=== PATIENT | female | born 1955 | race American Indian/Alaskan Native ===

== ENCOUNTER 2017-11-05 15:41 | Observation (INO) | payer MEDICARE ==
[2017-11-05 18:48] LABS: Basophils % (Auto) 0.4 % (0.0-1.8); Eosinophils % (Auto) 0.3 % (0.0-4.3); Hematocrit 42.5 % (30.3-42.9); Hemoglobin 13.7 gm/dl (10.1-14.3); Lymphocytes # (Auto) 3.6 K/mm3 (1.2-5.4); Lymphocytes % (Auto) 41.2 % (13.4-35.0); Mean Corpuscular HGB Conc 32 % (30-34); Mean Corpuscular Hemoglobin 29 pg (28-32); Mean Corpuscular Volume 91 fl (79-97); Monocytes # (Auto) 0.6 K/mm3 (0.0-0.8); Platelet Count 376 K/mm3 (140-440); Red Blood Count 4.68 M/mm3 (3.65-5.03); Red Cell Distribution Width 14.8 % (13.2-15.2)
--- NOTE | 2017-11-05 18:48 | XRay Report ---
FINAL REPORT EXAM: XR CHEST ROUTINE 2V HISTORY: Shortness of breath TECHNIQUE: 2 view examination of the chest PRIORS: None FINDINGS: There is no visible pulmonary consolidation, pleural effusion, or pneumothorax. Cardiac silhouette size is normal without vascular congestion. No visible acute displaced fracture in the regional skeleton. IMPRESSION: No evidence of acute cardiopulmonary disease
--- NOTE | 2017-11-05 18:49 | Emergency Department Report ---
Blank Doc - Documentation Documentation: MSE sceening note: Pt has cc of nausea. HPI pt states she has had some sob, " cant take a deep breath" for a few days. upon questioning pt points to sub - xyphoid/epigastric area and may have some chest pain pt has hx of htn, is a 30 year ex smoker, who states she quit 10 years ago. pt is alert, normal speech and gait without neglect,' s1 s2 nrr lungs clear bl no obvious abd tenderness. no swelling to lower extrem plan- ekg= nsr at 73, no stemi, read at 15:48 in main ED pt does have qs in v1 v2 , may represent an old ant / septal [place], may be pt s baseline. plan- acs work up 23 hr obs for cp I am going off service. I will ask night team to write note, and arrange 23 hr obs for "r/o and stress test"
[2017-11-05] MEDS ORDERED: ECOTRIN PO ONE ×2 (18:54→23:34)
[2017-11-05] MEDS ORDERED: ZOFRAN ODT PO ONE (18:55)
[2017-11-05] MEDS ORDERED: NITRO-BID 2% TP ONE (18:55)
[2017-11-05 19:15] LABS: BUN/Creatinine Ratio 21; Blood Urea Nitrogen 15 mg/dL (7-17); Calcium 9.8 mg/dL (8.4-10.2); Hemolysis Index 11
[2017-11-05 19:53] LABS: Creatine Kinase MB 2.5 ng/mL (0.0-4.0)
[2017-11-05 19:56] LABS: Alanine Aminotransferase 14 units/L (7-56); Albumin 4.7 g/dL (3.9-5); BUN/Creatinine Ratio 21; Blood Urea Nitrogen 15 mg/dL (7-17); Calcium 9.8 mg/dL (8.4-10.2); Hemolysis Index 8; Lipase 31 units/L (13-60)
--- NOTE | 2017-11-05 21:40 | Emergency Department Report ---
ED General Adult HPI - General Chief complaint: Dyspnea/Respdistress Stated complaint: SHORTNESS OF BREATH Time Seen by Provider: 11/05/17 18:23 Source: patient Mode of arrival: Ambulatory Limitations: No Limitations - History of Present Illness Initial comments: MSE sceening note: Pt has cc of nausea. HPI pt states she has had some sob, " cant take a deep breath" for a few days. upon questioning pt points to sub - xyphoid/epigastric area and may have some chest pain pt has hx of htn, is a 30 year ex smoker, who states she quit 10 years ago. pt is alert, normal speech and gait without neglect,' s1 s2 nrr lungs clear bl no obvious abd tenderness. no swelling to lower extrem plan- ekg= nsr at 73, no stemi, read at 15:48 in main ED pt does have qs in v1 v2 , may represent an old ant / septal [place], may be pt s baseline. plan- acs work up 23 hr obs for cp -: days(s) (3), week(s) Location: chest Quality: aching Consistency: intermittent Improves with: none Worsens with: none Associated Symptoms: nausea/vomiting - Related Data Allergies Allergy/AdvReac Type Severity Reaction Status Date / Time morphine Allergy Unknown Verified 11/05/17 16:02 ED Review of Systems ROS: Stated complaint: SHORTNESS OF BREATH Other details as noted in HPI ED Past Medical Hx - Past Medical History Previous Medical History?: Yes Hx Hypertension: Yes - Surgical History Past Surgical History?: Yes Additional Surgical History: tubal ligation - Social History Smoking Status: Former Smoker Substance Use Type: Alcohol, Marijuana ED Physical Exam - General Limitations: No Limitations ED Course Vital Signs 11/05/17 11/05/17 11/05/17 16:04 23:37 23:38 Temperature 98.5 F 97.6 F Pulse Rate 75 66 66 Respiratory 16 16 Rate Blood Pressure 132/74 120/79 Blood Pressure 120/79 [Right] O2 Sat by Pulse 97 99 Oximetry ED Medical Decision Making - Lab Data Result diagrams: 11/05/17 18:11 11/05/17 19:12 Critical care attestation.: If time is entered above; I have spent that time in minutes in the direct care of this critically ill patient, excluding procedure time. ED Disposition Clinical Impression: Abnormal finding on EKG, Chest pain Disposition: OP ADMIT IP TO THIS HOSP Is pt being admited?: Yes Does the pt Need Aspirin: Yes Condition: Stable
[2017-11-05 21:51] LABS: Bilirubin,Urine NEG (Negative); Blood,Urine SM (Negative); Color,Urine Straw (Yellow); Mucus,Urine FEW /HPF; Protein,Urine <15 mg/dL mg/dL (Negative); Urobilinogen,Urine < 2.0 mg/dL (<2.0)
[2017-11-05] MEDS ORDERED: ZOFRAN ODT ONE (23:33)
[2017-11-05] MEDS ORDERED: TYLENOL PO PRN (23:42)
[2017-11-05] MEDS ORDERED: ZOFRAN IV PRN (23:43)
[2017-11-05] MEDS ORDERED: NITROSTAT SL PRN (23:44)
[2017-11-05] MEDS ORDERED: NITRO-BID 2% TP SCH (23:45)
--- NOTE | 2017-11-06 05:19 | History and Physical Report ---
CHIEF COMPLAINT: Shortness of breath. Other complaints include chest pain. HISTORY OF PRESENT ILLNESS: The patient is a 62-year-old female who said that she has been having difficulty in breathing going on for few days and then started feeling nauseated with some discomfort in the retrosternal and epigastric area. There is no history of diaphoresis, no history of fever or chills. No history of vomiting. The patient's chest discomfort does not radiate. There is no associated dizziness. The patient presented to the Emergency Room. PAST MEDICAL HISTORY: Pertinent for hypertension. PAST SURGICAL HISTORY: Pertinent for tubal ligation. FAMILY HISTORY: Noncontributory. SOCIAL HISTORY: The patient is a former cigarette smoker, but does not smoke currently, but drinks alcohol and uses marijuana. REVIEW OF SYSTEMS: CONSTITUTIONAL: There is no fever, no chills, no diaphoresis. HEENT: There is no headache or sore throat. CARDIOVASCULAR SYSTEM: There is chest pain but no orthopnea. RESPIRATORY: Shortness of breath is present. No cough. GASTROINTESTINAL SYSTEM: There is nausea but no vomiting. There is epigastric abdominal pain. There is no diarrhea or constipation. NEUROLOGIC SYSTEM: There is no numbness, no dizziness, no altered mental status. MUSCULOSKELETAL SYSTEM: There is no joint pain or swelling. DERMATOLOGICAL SYSTEM: There is no skin rash or itching. GENITOURINARY SYSTEM: There is no dysuria, hematuria or flank pain. Rest of system review is normal. PHYSICAL EXAMINATION: GENERAL: At the time of exam, the patient was found to be alert, oriented x 3 and not in acute distress. VITAL SIGNS: Shows temperature of 98.5 degrees Fahrenheit, pulse of 75, respiration of 16, blood pressure 132/74, O2 sat of 97% on room air. HEENT: Show pupils to be equal, round, and reactive to light and accommodation. Extraocular muscles are intact. NECK: Supple with no JVD or carotid bruit. CARDIOVASCULAR: Showed normal first and second heart sounds with no gallops or murmurs. RESPIRATORY: Show good air entry on both sides of the lungs with no abnormal breath sounds. GASTROINTESTINAL SYSTEM: Show abdomen to be full, soft, nontender with no organomegaly or rigidity. NEUROLOGICAL: Shows no focal deficit. MUSCULOSKELETAL: Show no joint swelling or tenderness. DERMATOLOGICAL: Showing no skin rash. GENITOURINARY: Showing no costovertebral angle tenderness. PERTINENT LABORATORY DATA AND IMAGING STUDIES: The patient has CBC done that shows normal white count, normal hemoglobin and normal hematocrit with CBC differential showing elevated lymphocyte count of 41.2. The patient's chemistry came back are unremarkable. Cardiac enzymes came back unremarkable. Urinalysis was unremarkable. IMAGING STUDIES: The patient had chest x-ray done that showed no evidence of acute cardiopulmonary disease. DIAGNOSIS: Chest pain. PLAN: The patient will be admitted to medical floor on telemetry and will have cardiac enzymes involving troponin, total CK, and CK-MB checked q. 6 hours x 2 more level. The patient will remain n.p.o. for Lexiscan nuclear stress test in the morning and will be on Tylenol 650 mg by mouth every 4 hours for fever, headache and aspirin 325 mg by mouth daily. The patient will also be on heparin 5000 units subq q. 12 hours, p.o. sublingual nitroglycerin 0.4 mg every 5 minutes as needed for chest pain and also be on nitro paste half-inch to anterior chest wall q.i.d. The patient will be on IV Zofran 4 mg every 8 hours as needed for pain and will be on oxygen by cannula 2 liters per minute. Further management of the patient's condition will be dependent on the result of stress test. JOB# [id number] OCN/NTS
[2017-11-06 06:17] VITALS: BP 124/72
[2017-11-06] MEDS ORDERED: LEXISCAN IV ONE ×2 (08:12→08:19)
[2017-11-06] MEDS ORDERED: ASPIRIN PO SCH (10:00)
[2017-11-06] MEDS ORDERED: HEPARIN SUB-Q SCH (10:00)
--- NOTE | 2017-11-06 11:40 | Progress Note ---
Assessment and Plan Assessment and plan: Patient is a 62 yo woman with a history of prior tob dependency and hypertension who presents with cp -CP, atypical, suspect related to GERD: i advised her to use Nexium otc, she voiced understanding and agreement. -Hypertension: cpm History Interval history: Patient was seen and examined. Follow-up on current diagnosis. Overnight uneventful. Patient denies any chest pain, shortness breath, nausea/vomiting or severe headaches. Imaging, nursing note, chart, labs and old chart reviewed. Discussed with patient. No more chest pains, but she gives a history of dyspepsia not relieved by her typical Rantidine 150mg. Hospitalist Physical - Physical exam Narrative exam: GEN: WDWN, NAD, Awake, Alert, Orientated x 3 HEENT: NCAT, EOMI, PERRL, OP Clear NECK: supple, no adenopathy, no thyromegaly, no JVD CVS/HEART: RRR, occasional reg melany, normal S1S2, pulses present bilaterally CHEST/LUNGS: CTA B, Symmetrical chest expansion, good air entry bilaterally GI/Abdomen: soft, NTND, good bowel sounds, no guarding or rebound /Bladder: no suprapubic tenderness, no CVA or paraspinal tenderness EXT/Skin: no c/c/e, no obvious rash MSK: FROM x 4 Neuro: CN 2-12 grossly intact, no new focal deficits Psych: calm - Constitutional Vitals: Temp Pulse Resp BP Pulse Ox 98.3 F 56 L 18 124/72 100 11/06/17 04:45 11/06/17 06:41 11/06/17 04:45 11/06/17 04:45 11/06/17 08:07 Results - Labs CBC & Chem 7: 11/05/17 18:11 11/05/17 19:12 Labs: Laboratory Last Values WBC 8.8 K/mm3 (4.5-11.0) 11/05/17 18:11 RBC 4.68 M/mm3 (3.65-5.03) 11/05/17 18:11 Hgb 13.7 gm/dl (10.1-14.3) 11/05/17 18:11 Hct 42.5 % (30.3-42.9) 11/05/17 18:11 MCV 91 fl (79-97) 11/05/17 18:11 MCH 29 pg (28-32) 11/05/17 18:11 MCHC 32 % (30-34) 11/05/17 18:11 RDW 14.8 % (13.2-15.2) 11/05/17 18:11 Plt Count 376 K/mm3 (140-440) 11/05/17 18:11 Lymph % (Auto) 41.2 % (13.4-35.0) H 11/05/17 18:11 Storey % (Auto) 7.0 % (0.0-7.3) 11/05/17 18:11 Eos % (Auto) 0.3 % (0.0-4.3) 11/05/17 18:11 Baso % (Auto) 0.4 % (0.0-1.8) 11/05/17 18:11 Lymph # 3.6 K/mm3 (1.2-5.4) 11/05/17 18:11 Storey # 0.6 K/mm3 (0.0-0.8) 11/05/17 18:11 Eos # 0.0 K/mm3 (0.0-0.4) 11/05/17 18:11 Baso # 0.0 K/mm3 (0.0-0.1) 11/05/17 18:11 Seg Neutrophils % 51.1 % (40.0-70.0) 11/05/17 18:11 Seg Neutrophils # 4.5 K/mm3 (1.8-7.7) 11/05/17 18:11 D-Dimer < 135.00 ng/mlDDU (0-234) 11/05/17 19:12 Sodium 140 mmol/L (137-145) 11/05/17 19:12 Potassium 3.6 mmol/L (3.6-5.0) 11/05/17 19:12 Chloride 99.9 mmol/L (98-107) 11/05/17 19:12 Carbon Dioxide 24 mmol/L (22-30) 11/05/17 19:12 Anion Gap 20 mmol/L 11/05/17 19:12 BUN 15 mg/dL (7-17) 11/05/17 19:12 Creatinine 0.7 mg/dL (0.7-1.2) 11/05/17 19:12 Estimated GFR > 60 ml/min 11/05/17 19:12 BUN/Creatinine Ratio 21 % 11/05/17 19:12 Glucose 106 mg/dL (65-100) H 11/05/17 19:12 Calcium 9.8 mg/dL (8.4-10.2) 11/05/17 19:12 Total Bilirubin 0.30 mg/dL (0.1-1.2) 11/05/17 19:12 AST 21 units/L (5-40) 11/05/17 19:12 ALT 14 units/L (7-56) 11/05/17 19:12 Alkaline Phosphatase 71 units/L (35-129) 11/05/17 19:12 Total Creatine Kinase 111 units/L (30-135) 11/05/17 19:12 CK-MB (CK-2) 2.5 ng/mL (0.0-4.0) 11/05/17 19:12 CK-MB (CK-2) Rel Index 2.2 (0-4) 11/05/17 19:12 Troponin T < 0.010 ng/mL (0.00-0.029) 11/06/17 07:25 NT-Pro-B Natriuret Pep 33.67 pg/mL (0-900) 11/05/17 19:12 Total Protein 7.6 g/dL (6.3-8.2) 11/05/17 19:12 Albumin 4.7 g/dL (3.9-5) 11/05/17 19:12 Albumin/Globulin Ratio 1.6 % 11/05/17 19:12 Lipase 31 units/L (13-60) 11/05/17 19:12 Urine Color Straw (Yellow) 11/05/17 Unknown Urine Turbidity Clear (Clear) 11/05/17 Unknown Urine pH 5.0 (5.0-7.0) 11/05/17 Unknown Ur Specific Holcomb 1.011 (1.003-1.030) 11/05/17 Unknown Urine Protein <15 mg/dl mg/dL (Negative) 11/05/17 Unknown Urine Glucose (UA) Neg mg/dL (Negative) 11/05/17 Unknown Urine Ketones Neg mg/dL (Negative) 11/05/17 Unknown Urine Blood Sm (Negative) 11/05/17 Unknown Urine Nitrite Neg (Negative) 11/05/17 Unknown Urine Bilirubin Neg (Negative) 11/05/17 Unknown Urine Urobilinogen < 2.0 mg/dL (<2.0) 11/05/17 Unknown Ur Leukocyte Esterase Tr (Negative) 11/05/17 Unknown Urine WBC (Auto) 2.0 /HPF (0.0-6.0) 11/05/17 Unknown Urine RBC (Auto) 2.0 /HPF (0.0-6.0) 11/05/17 Unknown U Epithel Cells (Auto) < 1.0 /HPF (0-13.0) 11/05/17 Unknown Urine Mucus Few /HPF 11/05/17 Unknown
--- NOTE | 2017-11-06 11:42 | Discharge Summary ---
Providers - Providers Date of Admission: 11/05/17 23:33 Date of discharge: 11/06/17 Attending physician: MARKOS COLLINS Primary care physician: NET UI DEVELOPER Hospitalization Condition: Stable Hospital course: Patient is a 62 yo woman with a history of prior tob dependency and hypertension who presents with cp -CP, atypical, suspect related to GERD: i advised her to use Nexium otc, she voiced understanding and agreement. -Hypertension: cpm -GERD CXR reported as no acute findings Will d/c if stress test is negative Disposition: DC-01 TO HOME OR SELFCARE Time spent for discharge: 31 min Core Measure Documentation - Palliative Care Palliative Care/ Comfort Measures: Not Applicable - Core Measures Any of the following diagnoses?: none - VTE Discharge Requirements Deep Vein Thrombosis/Pulmonary Embolism Present on Admission: No Has pt received <5 days of overlap therapy or INR<2.0: No Anticoagulant overlap therapy prescribed at discharge: No Contraindication No Overlap Therapy order at DC: Not Indicated Exam - Physical Exam Narrative exam: GEN: WDWN, NAD, Awake, Alert, Orientated x 3 HEENT: NCAT, EOMI, PERRL, OP Clear NECK: supple, no adenopathy, no thyromegaly, no JVD CVS/HEART: RRR, occasional reg melany, normal S1S2, pulses present bilaterally CHEST/LUNGS: CTA B, Symmetrical chest expansion, good air entry bilaterally GI/Abdomen: soft, NTND, good bowel sounds, no guarding or rebound /Bladder: no suprapubic tenderness, no CVA or paraspinal tenderness EXT/Skin: no c/c/e, no obvious rash MSK: FROM x 4 Neuro: CN 2-12 grossly intact, no new focal deficits Psych: calm - Constitutional Vitals: Temp Pulse Resp BP Pulse Ox 98.3 F 56 L 18 124/72 100 11/06/17 04:45 11/06/17 06:41 11/06/17 04:45 11/06/17 04:45 11/06/17 08:07 Plan Activity: other (no strenous activity until cleared by PCP) Diet: low salt Follow up with: PRIMARY CARE, [Primary Care Provider] - 3-5 Days Prescriptions: Esomeprazole Magnesium [NexIUM 24Hr] 20 mg PO DAILY #30 capsule.
--- NOTE | 2017-11-08 23:02 | Treadmill Report ---
THALLIUM STRESS TEST LEFT VENTRICLE: Left ventricular chamber size is within normal. Perfusion study demonstrates homogeneous uptake of the tracer in all segments, no significant perfusion defects identified. Gated analysis demonstrates normal left ventricular systolic function, ejection fraction 70%. CONCLUSION: Normal myocardial perfusion study. JOB# [id number] CA/NTS
== END 2017-11-06 14:52 | disposition home or self-care (01) ==
LOC: ED 15:41 → INTOOBSV 23:33 → 4A 23:33
PROVIDERS: ADMIT Internal Medicine; ATTEND Internal Medicine
DX: R07.89 Other chest pain (principal); I10 Essential (primary) hypertension; K21.9 Gastro-esophageal reflux disease without esophagitis; Z87.891 Personal history of nicotine dependence
CPT/HCPCS: 36415; 71046; 78452; 80048; 80053; 81001; 82550; 82553; 83690; 83880; 84484; 85025; 85379; 93005; 93010; 93017; 94760; 96372; 99285; A9502; G0378; J1644; J2785; Q0162

== ENCOUNTER 2018-02-27 22:42 | Emergency (ER) | payer MEDICARE ==
[2018-02-27] MEDS ORDERED: ASPIRIN PO ONE (22:57)
[2018-02-27] MEDS ORDERED: LIDOCAINE VISCOUS 2% ONE (23:03)
[2018-02-27] MEDS ORDERED: ALUM-MAG HYDROX-SIMETH 200-200-20MG/5ML ONE (23:04)
[2018-02-27] MEDS ORDERED: LIDOCAINE VISCOUS 2% PO ONE (23:05)
[2018-02-27] MEDS ORDERED: ALUM-MAG HYDROX-SIMETH 200-200-20MG/5ML PO ONE (23:05)
[2018-02-27 23:33] LABS: Basophils % (Auto) 0.5 % (0.0-1.8); Eosinophils % (Auto) 0.6 % (0.0-4.3); Hematocrit 38.6 % (30.3-42.9); Lymphocytes # (Auto) 2.9 K/mm3 (1.2-5.4); Lymphocytes % (Auto) 38.9 % (13.4-35.0); Mean Corpuscular HGB Conc 34 % (30-34); Mean Corpuscular Hemoglobin 31 pg (28-32); Mean Corpuscular Volume 91 fl (79-97); Monocytes # (Auto) 0.8 K/mm3 (0.0-0.8); Monocytes % (Auto) 11.1 % (0.0-7.3); Platelet Count 357 K/mm3 (140-440); Red Blood Count 4.24 M/mm3 (3.65-5.03); Red Cell Distribution Width 14.9 % (13.2-15.2)
[2018-02-27 23:49] LABS: BUN/Creatinine Ratio 24; Blood Urea Nitrogen 19 mg/dL (7-17); Calcium 9.7 mg/dL (8.4-10.2); Hemolysis Index 3
--- NOTE | 2018-02-28 04:56 | Emergency Department Report ---
ED Chest Pain HPI - General Chief Complaint: Chest Pain Stated Complaint: CHEST PAIN Time Seen by Provider: 02/28/18 04:40 Source: patient Mode of arrival: Ambulatory Limitations: No Limitations - History of Present Illness Initial Comments: Patient is 62-year-old [place] female history of GERD presents for epigastric pain 10 after eating, turnip greens with smoked turkey necks for dinner patient states she will woke up epigastric pressure radiating to both shoulders symptoms of since been relieved with GI cocktail given in ED pain is now 110 burning and MD Complaint: chest pain Onset/Timin -: days(s) Onset: after eating Pain Location: epigastric Pain Radiation: RUE, LUE Severity: moderate Severity scale (0 -10): 5 Quality: heaviness, pressure Consistency: intermittent Improves With: antacids, other (belching ) Worsens With: eating re: nausea Other Symptoms: acid taste in mouth Treatments Prior to Arrival: none Aspirin use within the Past 7 Days: (0) No - Related Data On Oral Contraceptives: No Previous Rx's Medication Instructions Recorded Last Taken Type Esomeprazole Magnesium [NexIUM 20 mg PO DAILY #30 capsule. 11/06/17 Unknown Rx 24Hr] Omeprazole 40 mg PO DAILY #30 capsule. 02/28/18 Unknown Rx Sucralfate [Carafate] 1 gm PO ACHS 7 Days #28 tablet 02/28/18 Unknown Rx Allergies Allergy/AdvReac Type Severity Reaction Status Date / Time morphine Allergy Unknown Verified 11/05/17 16:02 Heart Score - HEART Score History: Slightly suspicious EKG: Normal Age: 45-65 Risk factors: 1-2 risk factors Troponin: < normal limit HEART Score: 2 ED Review of Systems ROS: Stated complaint: CHEST PAIN Other details as noted in HPI Constitutional: denies: chills, fever Eyes: denies: eye pain, eye discharge, vision change ENT: denies: ear pain, throat pain Respiratory: denies: cough, shortness of breath, wheezing Cardiovascular: denies: chest pain, palpitations Endocrine: no symptoms reported Gastrointestinal: nausea. denies: abdominal pain, vomiting, diarrhea, constipation, hematemesis Genitourinary: denies: urgency, dysuria, discharge Musculoskeletal: denies: back pain, joint swelling, arthralgia Skin: denies: rash, lesions Neurological: denies: headache, weakness, paresthesias Psychiatric: denies: anxiety, depression Hematological/Lymphatic: denies: easy bleeding, easy bruising ED Past Medical Hx - Past Medical History Hx Hypertension: Yes Hx GERD: Yes - Surgical History Additional Surgical History: tubal ligation - Social History Smoking Status: Never Smoker Substance Use Type: Alcohol - Medications Home Medications: Home Medications Medication Instructions Recorded Confirmed Last Taken Type Esomeprazole Magnesium [NexIUM 20 mg PO DAILY #30 capsule. 11/06/17 Unknown Rx 24Hr] Omeprazole 40 mg PO DAILY #30 capsule. 02/28/18 Unknown Rx Sucralfate [Carafate] 1 gm PO ACHS 7 Days #28 tablet 02/28/18 Unknown Rx ED Physical Exam - General Limitations: No Limitations General appearance: alert, in no apparent distress - Head Head exam: Present: atraumatic, normocephalic - Eye Eye exam: Present: normal appearance - ENT ENT exam: Present: mucous membranes moist - Neck Neck exam: Present: normal inspection, full ROM. Absent: tenderness, lymphadenopathy, thyromegaly - Respiratory Respiratory exam: Present: normal lung sounds bilaterally. Absent: respiratory distress, wheezes, stridor, chest wall tenderness - Cardiovascular Cardiovascular Exam: Present: regular rate, normal rhythm, normal heart sounds. Absent: systolic murmur, diastolic murmur, rubs, gallop - GI/Abdominal GI/Abdominal exam: Present: soft, normal bowel sounds. Absent: tenderness, bruit, hernia - Expanded GI/Abdominal Exam Expanded GI/Abdominal exam: Absent: psoas sign, obturator sign, heel tap sign, Rodriguez's sign, Rovsing's sign, tenderness at Mcburney's Point, ascites - Rectal Rectal exam: Present: deferred - Extremities Exam Extremities exam: Present: normal inspection, full ROM, normal capillary refill. Absent: tenderness, pedal edema, joint swelling, calf tenderness - Back Exam Back exam: Present: normal inspection, full ROM. Absent: tenderness, CVA tenderness (R), CVA tenderness (L), muscle spasm, paraspinal tenderness, vertebral tenderness, rash noted - Neurological Exam Neurological exam: Present: alert, oriented X3, CN II-XII intact, normal gait. Absent: reflexes normal - Psychiatric Psychiatric exam: Present: normal affect, normal mood - Skin Skin exam: Present: warm, dry, intact ED Course Vital Signs 08/20/18 22:53 Temperature 97.7 F Pulse Rate 63 Respiratory 18 Rate Blood Pressure 184/89 O2 Sat by Pulse 100 Oximetry MUNIRA score - Munira Score Age > 65: (0) No (eyes was related needed admitted. She) Aspirin use within the Past 7 Days: (0) No 3 or more CAD Risk Factors: (1) Yes 2 or more Angina events in past 24 hrs: (0) No Known CAD with more than 50% Stenosis: (0) No Elevated Cardiac Markers: (0) No ST Deviation Greater than 0.5mm: (0) No MUNIRA Score: 1 ED Medical Decision Making - Lab Data Result diagrams: 02/27/18 23:18 02/27/18 23:18 - EKG Data EKG shows normal: sinus rhythm Rate: normal - EKG Data When compared to previous EKG there are: no significant change Interpretation: no acute changes, normal EKG - Medical Decision Making This is likely GERD exacerbation this patient is a GERD medication was taking Zantac ran out 4 weeks ago this episode initiated after eating spicy and greasy foods patient educated on GERD diet relieved with GI cocktail given in ED restart omeprazole bridge with Carafate patient will follow up with GI cupon appointment follow-up with PCP in 2-3 days return to ED should symptoms worsen patient verbalizes understanding and agreement with same for discharge to home at this time patient is a/ o 3 ambulatory with no chest pain no shortness of breath no dizziness no back pain at this time Critical care attestation.: If time is entered above; I have spent that time in minutes in the direct care of this critically ill patient, excluding procedure time. ED Disposition Clinical Impression: GERD (gastroesophageal reflux disease) Qualifiers: Esophagitis presence: without esophagitis Qualified Code(s): K21.9 - Gastro- esophageal reflux disease without esophagitis Disposition: - TO HOME OR SELFCARE Is pt being admited?: No Does the pt Need Aspirin: No Condition: Good Instructions: Gastroesophageal Reflux Disease (ED), Diet for Ulcers and Gastritis (ED) Prescriptions: Omeprazole 40 mg PO DAILY #30 capsule. Sucralfate [Carafate] 1 gm PO ACHS 7 Days #28 tablet Referrals: [facility] [Outside] - 3-5 Days WINDY DOZIER MD [Staff Physician] - 3-5 Days Forms: Work/School Release Form(ED) Time of Disposition: 05:20
[2018-02-28] MEDS ORDERED: LIDOCAINE VISCOUS 2% ONE (05:37)
[2018-02-28] MEDS ORDERED: LIDOCAINE VISCOUS 2% PO ONE (05:37)
[2018-02-28] MEDS ORDERED: ALUM-MAG HYDROX-SIMETH 200-200-20MG/5ML PO ONE (05:37)
[2018-02-28] MEDS ORDERED: ALUM-MAG HYDROX-SIMETH 200-200-20MG/5ML ONE (05:37)
[2018-02-28 05:43] VITALS: BP 141/75
== END 2018-02-28 05:39 | disposition home or self-care (01) ==
LOC: ED 22:42
DX: K21.9 Gastro-esophageal reflux disease without esophagitis (principal); I10 Essential (primary) hypertension; Z98.51 Tubal ligation status; Z88.5 Allergy status to narcotic agent; Z79.899 Other long term (current) drug therapy
CPT/HCPCS: 36415; 80048; 84484; 85025; 93005; 93010; 99284

== ENCOUNTER 2018-12-26 13:07 | Emergency (ER) | payer MEDICARE ==
[2018-12-26 13:14] VITALS: BP 133/86
--- NOTE | 2018-12-26 14:31 | Event Note ---
ED Screening Note Date of service: 12/26/18 Time: 14:00 ED Screening Note: 63 y/o female comes of increase dizziness head tingling of left side started this morning. Patient reports that she drinks every day . Patient smell of ETOH. This initial assessment/diagnostic orders/clinical plan/treatment(s) is/are subject to change based on patients health status, clinical progression and re- assessment by fellow clinical providers in the ED. Further treatment and workup at subsequent clinical providers discretion. Patient/guardian urged not to elope from the ED as their condition may be serious if not clinically assessed and managed. Initial orders include:
[2018-12-26 14:52] LABS: Basophils % (Auto) 0.4 % (0.0-1.8); Eosinophils % (Auto) 0.4 % (0.0-4.3); Hematocrit 39.4 % (30.3-42.9); Hemoglobin 13.3 gm/dl (10.1-14.3); Lymphocytes # (Auto) 2.6 K/mm3 (1.2-5.4); Lymphocytes % (Auto) 35.8 % (13.4-35.0); Mean Corpuscular HGB Conc 34 % (30-34); Mean Corpuscular Volume 90 fl (79-97); Monocytes # (Auto) 0.5 K/mm3 (0.0-0.8); Monocytes % (Auto) 7.2 % (0.0-7.3); Platelet Count 362 K/mm3 (140-440); Red Blood Count 4.39 M/mm3 (3.65-5.03); Red Cell Distribution Width 14.9 % (13.2-15.2)
[2018-12-26 15:09] LABS: Alanine Aminotransferase 12 units/L (7-56); Albumin 4.3 g/dL (3.9-5); BUN/Creatinine Ratio 17; Blood Urea Nitrogen 15 mg/dL (7-17); Calcium 9.2 mg/dL (8.4-10.2); Hemolysis Index 8
--- NOTE | 2018-12-26 15:18 | Cat Scan Report ---
CT HEAD WITHOUT CONTRAST: HISTORY: Stroke symptoms. TECHNIQUE: Sequential 2.5mm CT images. COMPARISON: none. FINDINGS: Cerebral Parenchyma: Within normal limits. Cerebellum: Within normal limits. Brainstem: Within normal limits. Ventricles: Normal. Sella: Normal. Extra-axial spaces: Normal. Basal Cisterns: Normal. Intracranial Hemorrhage: None. Midline Shift: None. Calvarium: Normal. Sinuses: Normal. Mastoid Air Cells: Normal. Visualized Orbits: Normal. IMPRESSION: Cranial CT scan within normal limits.
--- NOTE | 2018-12-26 16:40 | Emergency Department Report ---
HPI - General Chief Complaint: Neuro Symptoms/Deficit Time Seen by Provider: 12/26/18 15:49 - HPI HPI: 63-year-old -[place] female presents to the emergency department from home with a complaint of an episode this morning with lightheadedness and dizziness. It started around 4 AM when she was going to the restroom. At the time she felt like she was off balanced and that she might pass out, but never did. She had some abnormal sensation to the left side of her face, neck and shoulder that she describes as a numbness and/or tingling. The patient says that she's been having intermittent headaches over the past 1.5 weeks that are generalized but when they occur she gets dizzy with some blurred vision. Currently the patient just feels fatigued but is otherwise awake and alert without any current deficits or complaints. She has a past medical history of hypertension and acid reflux. She is a daily drinker but only admits to about 1 drink per day and denies alcohol dependence and denies any illicit drug use. Her primary care physician is Dr. Ej Solomon. No recent travel or sick contacts at home. ED Past Medical Hx - Past Medical History Hx Hypertension: Yes Hx GERD: Yes - Surgical History Additional Surgical History: tubal ligation - Social History Smoking Status: Never Smoker Substance Use Type: Alcohol - Medications Home Medications: Home Medications Medication Instructions Recorded Confirmed Last Taken Type Esomeprazole Magnesium [Nexium 20 mg PO QDAY 12/26/18 12/26/18 12/26/18 History 24Hr] Lisinopril [Zestril TAB] 40 mg PO QDAY 12/26/18 12/26/18 12/26/18 History amLODIPine [Norvasc] 10 mg PO DAILY 12/26/18 12/26/18 12/26/18 History ED Review of Systems ROS: Stated complaint: DIZZY Other details as noted in HPI Comment: All other systems reviewed and negative Constitutional: denies: chills, fever Eyes: other (blurry vision with headaches but none currently). denies: eye pain, eye discharge ENT: denies: ear pain, throat pain Respiratory: denies: cough, shortness of breath Cardiovascular: denies: chest pain, palpitations Gastrointestinal: denies: abdominal pain, vomiting Genitourinary: denies: dysuria, frequency Musculoskeletal: denies: back pain, arthralgia Skin: denies: rash, lesions Neurological: headache, numbness, other (dizziness, lightheadedness) Physical Exam - Physical Exam Vital Signs: Vital Signs 12/26/18 12/26/18 12/26/18 13:13 13:20 15:41 Temperature 98.5 F 98 F Pulse Rate 82 86 75 Respiratory 18 19 15 Rate Blood Pressure 133/86 Blood Pressure 133/86 [Right] O2 Sat by Pulse 96 98 98 Oximetry 12/26/18 12/26/18 15:46 15:53 Temperature Pulse Rate 74 Respiratory 20 16 Rate Blood Pressure Blood Pressure [Right] O2 Sat by Pulse 98 Oximetry Physical Exam: GENERAL: The patient is well-developed well-nourished. HENT: Normocephalic. Atraumatic. Patient has moist mucous membranes. EYES: Extraocular motions are intact. Pupils equal reactive to light bilaterally. No nystagmus. NECK: Supple. Trachea is midline. CHEST/LUNGS: Clear to auscultation. There is no respiratory distress noted. HEART/CARDIOVASCULAR: Regular. There is no tachycardia. There is no murmur. ABDOMEN: Abdomen is soft, nontender. Patient has normal bowel sounds. There is no abdominal distention. SKIN: Skin is warm and dry. NEURO: The patient is awake, alert, and oriented. The patient is cooperative. The patient has no focal neurologic deficits. The patient has normal speech. Cranial nerves II through XII grossly intact. No pronator drift. No dysmetria. MUSCULOSKELETAL: There is no tenderness or deformity. There is no limitation range of motion. There is no evidence of acute injury. Muscle strength 5 out of 5 upper and lower extremities bilaterally. ED Course Vital Signs 12/26/18 12/26/18 12/26/18 13:13 13:20 15:41 Temperature 98.5 F 98 F Pulse Rate 82 86 75 Respiratory 18 19 15 Rate Blood Pressure 133/86 Blood Pressure 133/86 [Right] O2 Sat by Pulse 96 98 98 Oximetry 12/26/18 12/26/18 15:46 15:53 Temperature Pulse Rate 74 Respiratory 20 16 Rate Blood Pressure Blood Pressure [Right] O2 Sat by Pulse 98 Oximetry ED Medical Decision Making - Lab Data Result diagrams: 12/26/18 14:38 12/26/18 14:38 - EKG Data -: EKG Interpreted by Me EKG shows normal: sinus rhythm, axis, intervals, QRS complexes, ST-T waves Rate: normal - EKG Data When compared to previous EKG there are: previous EKG unavailable Interpretation: normal EKG - Radiology Data Radiology results: report reviewed CT HEAD WITHOUT CONTRAST: HISTORY: Stroke symptoms. TECHNIQUE: Sequential 2.5mm CT images. COMPARISON: none. FINDINGS: Cerebral Parenchyma: Within normal limits. Cerebellum: Within normal limits. Brainstem: Within normal limits. Ventricles: Normal. Sella: Normal. Extra-axial spaces: Normal. Basal Cisterns: Normal. Intracranial Hemorrhage: None. Midline Shift: None. Calvarium: Normal. Sinuses: Normal. Mastoid Air Cells: Normal. Visualized Orbits: Normal. IMPRESSION: Cranial CT scan within normal limits. Transcribed By: TTR Dictated By: ITZEL NORTON JR, MD Electronically Authenticated By: ITZEL NORTON JR, MD Signed Date/Time: 12/26/18 1513 - Medical Decision Making This patient presents to the emergency department with complaint of some nonspecific lightheadedness and dizziness that occurred earlier today along with some questionable left-sided facial numbness or tingling. She also had been saying that she has these intermittent headaches. At time of my examination, the patient's only complaint is some mild fatigue. On examination she has no focal, motor or sensory deficits and her cranial nerves are intact. The patient is a 0 on the NIH stroke scale. A CT scan of the head was done that does not show any bleed, shift, mass, ischemia, or any other acute process. EKG was normal without ST elevation UT, ischemia or dysrhythmia. Patient's labs are unremarkable including CBC, metabolic panel, troponin, thyroid function, blood alcohol level. She was reevaluated multiple times for multiple hours and there has been no return of these previous symptoms. At this point, the patient appears safe for discharge home at this time. She has been instructed to follow-up with her primary care physician, but to return immediately to the emergency department or call 911 with any return of her symptoms, strokelike symptoms, or any acute distress. - Differential Diagnosis TIA, thyroid dysfunction, hypoglycemia, complex migraine Critical Care Time: No Critical care attestation.: If time is entered above; I have spent that time in minutes in the direct care of this critically ill patient, excluding procedure time. ED Disposition Clinical Impression: Dizziness, Lightheaded Disposition: DC-01 TO HOME OR SELFCARE Is pt being admited?: No Condition: Stable Instructions: Near Syncope (ED), Lightheadedness (ED), Dizziness (ED) Additional Instructions: Please follow-up with your primary care physician in the next few days. Return to the emergency department with any return of your dizziness, lightheadedness, or with any strokelike symptoms, or if any acute distress. Referrals: LIZETTE SOLOMON MD [Primary Care Provider] - 2-3 Days Time of Disposition: 17:28 - Assessment Assessment Interval: Baseline - Level of Consciousness 1a. Level of Consciousness: alert/keenly responsive - LOC Questions 1b. LOC Questions: answers both correctly - LOC Command 1c. LOC Commands: performs tasks correctly - Best Gaze 2. Best Gaze: normal - Visual 3. Visual: no visual loss - Facial Palsy 4. Facial Palsy: normal symmetrical movement - Motor Arm 5a. Motor Arm Left: no drift 5b. Motor Arm Right: no drift - Motor Leg 6a. Motor Leg Left: no drift 6b. Motor Leg Right: no drift - Limb Ataxia 7. Limb Ataxia: absent - Sensory 8. Sensory: normal - Best Language 9. Best Language: no aphasia - Dysarthria 10. Dysarthria: normal - Extinction and Inattention 11. Extinction/Inattention: no abnormality - Scoring Total Score: 0 Stroke Severity: No Stroke Symptoms
[2018-12-26 17:30] LABS: Bilirubin,Urine NEG (Negative); Blood,Urine SM (Negative); Color,Urine Yellow (Yellow); Mucus,Urine FEW /HPF; Protein,Urine <15 mg/dL mg/dL (Negative); Urobilinogen,Urine < 2.0 mg/dL (<2.0)
[2018-12-26 17:39] LABS: Amphetamine Screen,Urine PRESUMPTIVE NEGATIVE; Benzodiazepines Screen,Urine PRESUMPTIVE NEGATIVE; Cocaine Screen,Urine PRESUMPTIVE NEGATIVE; Methadone Screen,Urine PRESUMPTIVE NEGATIVE; Opiate Screen,Urine PRESUMPTIVE NEGATIVE
[2018-12-26 17:55] LABS: Cannabinoid Screen,Urine PRESUMPTIVE POSITIVE
== END 2018-12-26 17:34 | disposition home or self-care (01) ==
LOC: ED 13:07
DX: R42 Dizziness and giddiness (principal); I10 Essential (primary) hypertension; K21.9 Gastro-esophageal reflux disease without esophagitis; Z98.51 Tubal ligation status; Z79.899 Other long term (current) drug therapy; Z88.6 Allergy status to analgesic agent
CPT/HCPCS: 36415; 70450; 80053; 80307; 81001; 82550; 82553; 84443; 84484; 85025; 85610; 85670; 85730; 93005; 93010; 99284; G0480; 80320

== ENCOUNTER 2019-01-08 07:11 | Emergency (ER) | payer MEDICARE ==
[2019-01-08 08:10] LABS: Hematocrit 36.9 % (30.3-42.9); Hemoglobin 12.8 gm/dl (10.1-14.3); Mean Corpuscular HGB Conc 35 % (30-34); Mean Corpuscular Volume 89 fl (79-97); Platelet Count 341 K/mm3 (140-440); Red Blood Count 4.15 M/mm3 (3.65-5.03); Red Cell Distribution Width 14.8 % (13.2-15.2)
[2019-01-08 08:22] LABS: BUN/Creatinine Ratio 16; Blood Urea Nitrogen 11 mg/dL (7-17); Calcium 9.1 mg/dL (8.4-10.2); Hemolysis Index 2
[2019-01-08] MEDS ORDERED: CATAPRES PO ONE (08:35)
[2019-01-08 08:54] VITALS: BP 137/78
--- NOTE | 2019-01-08 09:09 | XRay Report ---
CHEST 2 VIEWS INDICATION: SOB. COMPARISON: 11/05/2017 FINDINGS: Support devices: None. Heart: Within normal limits. Lungs/pleura: No acute air space or interstitial disease. No pneumothorax. Additional findings: None. IMPRESSION: 1. Chest x-ray within normal limits Signer Name: Raleigh Martinez Jr, MD Signed: 01/08/2019 10:04 AM Workstation Name: [id number]
--- NOTE | 2019-01-08 10:44 | Emergency Department Report ---
- General Chief Complaint: Dyspnea/Respdistress Stated Complaint: SOB Time Seen by Provider: 01/08/19 08:30 Source: patient Mode of arrival: Ambulatory Limitations: No Limitations - History of Present Illness Initial Comments: Patient is a 63-year-old Female who has a past medical history of hypertension and remote history of heavy smoking. Patient states she stopped smoking 13 years ago but did smoke for 32 years. Patient is presenting with shortness of breath. Patient states for the past several weeks off and on to have sensation that she can't take a deep breath. Patient feels as though when she is breathing in the chest expands and won't expand anymore N air in. Patient states this was worse since last night. Patient is complaining of some left neck and shoulder discomfort as well that is chronic. Patient states there is no pain with breathing and her lungs. Patient is a minimal dry cough that is chronic as well. - Related Data Home Medications Medication Instructions Recorded Confirmed Last Taken Esomeprazole Magnesium [Nexium 20 mg PO QDAY 12/26/18 01/08/19 12/26/18 24Hr] Lisinopril [Zestril TAB] 40 mg PO QDAY 12/26/18 01/08/19 12/26/18 amLODIPine [Norvasc] 10 mg PO DAILY 12/26/18 01/08/19 12/26/18 Previous Rx's Medication Instructions Recorded Last Taken Type ALBUTEROL Inhaler (OR & NICU) 2 puff IH QID PRN #1 inhalation 01/08/19 Unknown Rx [ProAir HFA Inhaler] Allergies Allergy/AdvReac Type Severity Reaction Status Date / Time morphine Allergy Unknown Verified 11/05/17 16:02 ED Review of Systems ROS: Stated complaint: SOB Other details as noted in HPI Comment: All other systems reviewed and negative ED Past Medical Hx - Past Medical History Previous Medical History?: Yes Hx Hypertension: Yes Hx GERD: Yes - Surgical History Past Surgical History?: Yes Additional Surgical History: tubal ligation - Social History Smoking Status: Former Smoker Substance Use Type: Marijuana - Medications Home Medications: Home Medications Medication Instructions Recorded Confirmed Last Taken Type Esomeprazole Magnesium [Nexium 20 mg PO QDAY 12/26/18 01/08/19 12/26/18 History 24Hr] Lisinopril [Zestril TAB] 40 mg PO QDAY 06/01/08/19 12/26/18 History amLODIPine [Norvasc] 10 mg PO DAILY 12/26/18 01/08/19 12/26/18 History ALBUTEROL Inhaler (OR & NICU) 2 puff IH QID PRN #1 inhalation 01/08/19 Unknown Rx [ProAir HFA Inhaler] ED Physical Exam - General Limitations: No Limitations General appearance: alert, in no apparent distress - Head Head exam: Present: atraumatic, normocephalic - Eye Eye exam: Present: normal appearance - ENT ENT exam: Present: mucous membranes moist - Neck Neck exam: Present: normal inspection - Respiratory Respiratory exam: Present: normal lung sounds bilaterally. Absent: respiratory distress, wheezes, rales, rhonchi - Cardiovascular Cardiovascular Exam: Present: regular rate, normal rhythm. Absent: systolic murmur, diastolic murmur, rubs, gallop - GI/Abdominal GI/Abdominal exam: Present: soft, normal bowel sounds. Absent: distended, ten derness, guarding - Extremities Exam Extremities exam: Present: normal inspection - Back Exam Back exam: Present: normal inspection - Neurological Exam Neurological exam: Present: alert, oriented X3 - Psychiatric Psychiatric exam: Present: normal affect, normal mood - Skin Skin exam: Present: warm, dry, intact, normal color. Absent: rash ED Course Vital Signs 01/08/19 01/08/19 07:41 08:53 Temperature 97.7 F Pulse Rate 66 63 Respiratory 18 Rate Blood Pressure 175/96 137/78 Blood Pressure 137/78 [Left] O2 Sat by Pulse 100 Oximetry ED Medical Decision Making - Lab Data Result diagrams: 01/08/19 07:51 01/08/19 07:51 Lab Results 01/08/19 01/08/19 01/08/19 Range/Units 07:51 07:51 07:51 WBC 5.7 (4.5-11.0) K/mm3 RBC 4.15 (3.65-5.03) M/mm3 Hgb 12.8 (10.1-14.3) gm/dl Hct 36.9 (30.3-42.9) % MCV 89 (79-97) fl MCH 31 (28-32) pg MCHC 35 H (30-34) % RDW 14.8 (13.2-15.2) % Plt Count 341 (140-440) K/mm3 D-Dimer (0-234) ng/mlDDU Sodium 142 (137-145) mmol/L Potassium 3.7 (3.6-5.0) mmol/L Chloride 104.9 (98-107) mmol/L Carbon Dioxide 25 (22-30) mmol/L Anion Gap 16 mmol/L BUN 11 (7-17) mg/dL Creatinine 0.7 (0.7-1.2) mg/dL Estimated GFR > 60 ml/min BUN/Creatinine Ratio 16 % Glucose 111 H (65-100) mg/dL Calcium 9.1 (8.4-10.2) mg/dL Troponin T < 0.010 (0.00-0.029) ng/mL 01/08/19 Range/Units 08:41 WBC (4.5-11.0) K/mm3 RBC (3.65-5.03) M/mm3 Hgb (10.1-14.3) gm/dl Hct (30.3-42.9) % MCV (79-97) fl MCH (28-32) pg MCHC (30-34) % RDW (13.2-15.2) % Plt Count (140-440) K/mm3 D-Dimer < 135.00 (0-234) ng/mlDDU Sodium (137-145) mmol/L Potassium (3.6-5.0) mmol/L Chloride (98-107) mmol/L Carbon Dioxide (22-30) mmol/L Anion Gap mmol/L BUN (7-17) mg/dL Creatinine (0.7-1.2) mg/dL Estimated GFR ml/min BUN/Creatinine Ratio % Glucose (65-100) mg/dL Calcium (8.4-10.2) mg/dL Troponin T (0.00-0.029) ng/mL - EKG Data -: EKG Interpreted by Ga EKG shows normal: sinus rhythm, axis, intervals, QRS complexes, ST-T waves Rate: normal - EKG Data Interpretation: normal EKG - Radiology Data [facility] [address] [place] [address] XRay Report Signed Patient: PIPO LYNN MR#: [id number] : 1955 Acct:[id number] Age/Sex: 63 / F ADM Date: 01/08/19 Loc: ED Attending Dr: Ordering Physician: TAISHA PANDYA Date of Service: 01/08/19 Procedure(s): XR chest routine 2V Accession Number(s): [id number] cc: TAISHA PANDYA Fluoro Time In Minutes: CHEST 2 VIEWS INDICATION: SOB. COMPARISON: 11/05/2017 FINDINGS: Support devices: None. Heart: Within normal limits. Lungs/pleura: No acute air space or interstitial disease. No pneumothorax. Additional findings: None. IMPRESSION: 1. Chest x-ray within normal limits Signer Name: Raleigh Martinez Jr, MD Signed: 01/08/2019 9:04 AM Workstation Name: [id number] Transcribed By: TTR Dictated By: RALEIGH MARTINEZ JR, MD Electronically Authenticated By: RALEIGH MARTINEZ JR, MD Signed Date/Time: 01/08/19803 DD/ 1 TD/TT: - Medical Decision Making Patient's d-dimer was within normal limits chest x-ray was within normal limits and troponin was negative. Patient on arrival had elevated blood pressure the patient had just taken her blood pressure medicines before she arrived her blood pressure did normalize. No obvious cause of the patient's shortness of breath has been found. Patient be referred to pulmonology for further management. Critical care attestation.: If time is entered above; I have spent that time in minutes in the direct care of this critically ill patient, excluding procedure time. ED Disposition Clinical Impression: Acute dyspnea Disposition: DC-01 TO HOME OR SELFCARE Is pt being admited?: No Does the pt Need Aspirin: No Condition: Stable Instructions: Dyspnea (ED) Referrals: JAISON MAYORGA MD [Staff Physician] - 3-5 Days Time of Disposition: 10:43
== END 2019-01-08 11:08 | disposition home or self-care (01) ==
LOC: ED 07:11
DX: R06.00 Dyspnea, unspecified (principal); I10 Essential (primary) hypertension; M54.2 Cervicalgia; M25.512 Pain in left shoulder; G89.29 Other chronic pain; K21.9 Gastro-esophageal reflux disease without esophagitis; F12.10 Cannabis abuse, uncomplicated; Z79.899 Other long term (current) drug therapy; Z88.5 Allergy status to narcotic agent; Z98.51 Tubal ligation status; Z87.891 Personal history of nicotine dependence
CPT/HCPCS: 36415; 71046; 80048; 84484; 85027; 85379; 93005; 93010; 99283

== ENCOUNTER 2019-01-15 07:09 | Emergency (ER) | payer MEDICARE ==
[2019-01-15 07:17] VITALS: BP 148/82
[2019-01-15 07:42] LABS: Basophils % (Auto) 0.5 % (0.0-1.8); Eosinophils % (Auto) 0.8 % (0.0-4.3); Hematocrit 39.7 % (30.3-42.9); Hemoglobin 13.3 gm/dl (10.1-14.3); Lymphocytes # (Auto) 2.3 K/mm3 (1.2-5.4); Lymphocytes % (Auto) 40.5 % (13.4-35.0); Mean Corpuscular HGB Conc 33 % (30-34); Mean Corpuscular Volume 90 fl (79-97); Monocytes # (Auto) 0.6 K/mm3 (0.0-0.8); Monocytes % (Auto) 9.8 % (0.0-7.3); Platelet Count 354 K/mm3 (140-440); Red Blood Count 4.44 M/mm3 (3.65-5.03); Red Cell Distribution Width 14.4 % (13.2-15.2)
[2019-01-15 07:58] LABS: Alanine Aminotransferase 13 units/L (7-56); Albumin 4.4 g/dL (3.9-5); BUN/Creatinine Ratio 19; Blood Urea Nitrogen 13 mg/dL (7-17); Calcium 9.5 mg/dL (8.4-10.2); Hemolysis Index 7
[2019-01-15] MEDS ORDERED: ZOFRAN ODT PO ONE (08:13)
[2019-01-15] MEDS ORDERED: IBUPROFEN PO ONE (08:13)
[2019-01-15 10:08] LABS: Bilirubin,Urine NEG (Negative); Blood,Urine SM (Negative); Color,Urine Yellow (Yellow); Mucus,Urine FEW /HPF; Protein,Urine <15 mg/dL mg/dL (Negative); Urobilinogen,Urine < 2.0 mg/dL (<2.0); WBC,Urine < 1.0 /HPF (0.0-6.0)
--- NOTE | 2019-01-15 11:28 | Emergency Department Report ---
ED Abdominal Pain HPI - General Chief Complaint: Abdominal Pain Stated Complaint: RT FLANK PAIN Time Seen by Provider: 01/15/19 08:09 Source: patient Mode of arrival: Ambulatory Limitations: No Limitations - History of Present Illness Initial Comments: Patient is a 63-year-old Female who is presenting with some right sided upper flank pain since yesterday. Patient states she has had some urinary frequency but no dysuria. Patient has some mild nausea but no vomiting. Patient denies diarrhea. Patient states her last meal was last night she had pork chops and then a piece of cake. Patient denies any fevers chills cough cold or congestion at this time. Severity scale (0 -10): 6 - Related Data Home Medications Medication Instructions Recorded Confirmed Last Taken Esomeprazole Magnesium [Nexium 20 mg PO QDAY 12/26/18 01/08/19 12/26/18 24Hr] Lisinopril [Zestril TAB] 40 mg PO QDAY 12/26/18 01/08/19 12/26/18 amLODIPine [Norvasc] 10 mg PO DAILY 12/26/18 01/08/19 12/26/18 Previous Rx's Medication Instructions Recorded Last Taken Type ALBUTEROL Inhaler (OR & NICU) 2 puff IH QID PRN #1 inhalation 01/08/19 Unknown Rx [ProAir HFA Inhaler] Ibuprofen [Motrin 800 MG tab] 800 mg PO Q8HR PRN #10 tablet 01/15/19 Unknown Rx Allergies Allergy/AdvReac Type Severity Reaction Status Date / Time morphine Allergy Unknown Verified 11/05/17 16:02 ED Review of Systems ROS: Stated complaint: RT FLANK PAIN Other details as noted in HPI Comment: All other systems reviewed and negative ED Past Medical Hx - Past Medical History Previous Medical History?: Yes Hx Hypertension: Yes Hx GERD: Yes - Surgical History Past Surgical History?: Yes Additional Surgical History: tubal ligation - Social History Smoking Status: Former Smoker Substance Use Type: Alcohol, Marijuana - Medications Home Medications: Home Medications Medication Instructions Recorded Confirmed Last Taken Type Esomeprazole Magnesium [Nexium 20 mg PO QDAY 12/26/18 01/08/19 12/26/18 History 24Hr] Lisinopril [Zestril TAB] 40 mg PO QDAY 12/26/18 01/08/19 12/26/18 History amLODIPine [Norvasc] 10 mg PO DAILY 12/26/18 01/08/19 12/26/18 History ALBUTEROL Inhaler (OR & NICU) 2 puff IH QID PRN #1 inhalation 01/08/19 Unknown Rx [ProAir HFA Inhaler] Ibuprofen [Motrin 800 MG tab] 800 mg PO Q8HR PRN #10 tablet 01/15/19 Unknown Rx ED Physical Exam - General Limitations: No Limitations General appearance: alert, in no apparent distress - Head Head exam: Present: atraumatic, normocephalic - Eye Eye exam: Present: normal appearance, PERRL, EOMI - ENT ENT exam: Present: mucous membranes moist - Neck Neck exam: Present: normal inspection - Respiratory Respiratory exam: Present: normal lung sounds bilaterally. Absent: respiratory distress, wheezes, rales, rhonchi - Cardiovascular Cardiovascular Exam: Present: regular rate, normal rhythm. Absent: systolic murmur, diastolic murmur, rubs, gallop - GI/Abdominal GI/Abdominal exam: Present: soft, tenderness (patient is exhibiting tenderness i n the right upper flank.), normal bowel sounds. Absent: distended, guarding, rebound - Extremities Exam Extremities exam: Present: normal inspection - Back Exam Back exam: Present: normal inspection. Absent: CVA tenderness (R), CVA tenderness (L) - Neurological Exam Neurological exam: Present: alert, oriented X3 - Psychiatric Psychiatric exam: Present: normal affect, normal mood - Skin Skin exam: Present: warm, dry, intact, normal color. Absent: rash ED Course Vital Signs 01/15/19 01/15/19 07:10 09:51 Temperature 97.7 F Pulse Rate 80 Respiratory 18 18 Rate Blood Pressure 148/82 O2 Sat by Pulse 98 Oximetry ED Medical Decision Making - Lab Data Result diagrams: 01/15/19 07:19 01/15/19 07:19 Lab Results 01/15/19 01/15/19 01/15/19 Range/Units 07:19 07: 07:56 WBC 5.7 (4.5-11.0) K/mm3 RBC 4.44 (3.65-5.03) M/mm3 Hgb 13.3 (10.1-14.3) gm/dl Hct 39.7 (30.3-42.9) % MCV 90 (79-97) fl MCH 30 (28-32) pg MCHC 33 (30-34) % RDW 14.4 (13.2-15.2) % Plt Count 354 (140-440) K/mm3 Lymph % (Auto) 40.5 H (13.4-35.0) % Hubbard % (Auto) 9.8 H (0.0-7.3) % Eos % (Auto) 0.8 (0.0-4.3) % Baso % (Auto) 0.5 (0.0-1.8) % Lymph # 2.3 (1.2-5.4) K/mm3 Hubbard # 0.6 (0.0-0.8) K/mm3 Eos # 0.0 (0.0-0.4) K/mm3 Baso # 0.0 (0.0-0.1) K/mm3 Seg Neutrophils % 48.4 (40.0-70.0) % Seg Neutrophils # 2.8 (1.8-7.7) K/mm3 Sodium 140 (137-145) mmol/L Potassium 3.7 (3.6-5.0) mmol/L Chloride 103.9 (98-107) mmol/L Carbon Dioxide 25 (22-30) mmol/L Anion Gap 15 mmol/L BUN 13 (7-17) mg/dL Creatinine 0.7 (0.7-1.2) mg/dL Estimated GFR > 60 ml/min BUN/Creatinine Ratio 19 % Glucose 111 H (65-100) mg/dL Calcium 9.5 (8.4-10.2) mg/dL Total Bilirubin 0.20 (0.1-1.2) mg/dL AST 19 (5-40) units/L ALT 13 (7-56) units/L Alkaline Phosphatase 84 (35-129) units/L Total Protein 7.6 (6.3-8.2) g/dL Albumin 4.4 (3.9-5) g/dL Albumin/Globulin Ratio 1.4 % Lipase 33 (13-60) units/L Urine Color Yellow (Yellow) Urine Turbidity Clear (Clear) Urine pH 5.0 (5.0-7.0) Ur Specific Bon[place]arte 1.016 (1.003-1.030) Urine Protein <15 mg/dl (Negative) mg/dL Urine Glucose (UA) Neg (Negative) mg/dL Urine Ketones Neg (Negative) mg/dL Urine Blood Sm (Negative) Urine Nitrite Neg (Negative) Urine Bilirubin Neg (Negative) Urine Urobilinogen < 2.0 (<2.0) mg/dL Ur Leukocyte Esterase Neg (Negative) Urine WBC (Auto) < 1.0 (0.0-6.0) /HPF Urine RBC (Auto) 3.0 (0.0-6.0) /HPF U Epithel Cells (Auto) < 1.0 (0-13.0) /HPF Urine Mucus Few /HPF - Radiology Data Radiology results: image reviewed (patient with gallbladder sludge but no other acute process) - Medical Decision Making Patient was given Motrin here in the emergency department which did relieve her symptoms. Patient to be given outpatient follow-up with general surgery to discuss gallbladder disease and the possibility of having gallbladder removed if symptoms return. Critical care attestation.: If time is entered above; I have spent that time in minutes in the direct care of this critically ill patient, excluding procedure time. ED Disposition Clinical Impression: Biliary colic, Gallbladder sludge Disposition: DC-01 TO HOME OR SELFCARE Is pt being admited?: No Does the pt Need Aspirin: No Condition: Stable Instructions: Biliary Colic (ED) Referrals: COURTNEY OLIVARES MD [Staff Physician] - 3-5 Days Time of Disposition: 11:29
--- NOTE | 2019-01-15 11:50 | Ultrasound Report ---
LIMITED RUQ ABDOMINAL ULTRASOUND INDICATION: RUQ/R flank pain pain. COMPARISON: No relevant prior imaging study available. FINDINGS: Pancreas: Visualized portions show no significant abnormality. Abdominal Aorta: No significant abnormality. IVC: No significant abnormality. Liver: No significant abnormality. Normal hepatopedal blood flow in the main portal vein. Gallbladder: No significant abnormality. Bile ducts: No significant abnormality. Common bile duct measures 2.4 mm. Right kidney: No significant abnormality visualized.. Free fluid: None. Additional Findings: None. IMPRESSION: 1. Normal exam. Signer Name: Raleigh Martinez Jr, MD Signed: 01/15/2019 11:46 AM Workstation Name: [id number]
== END 2019-01-15 11:39 | disposition home or self-care (01) ==
LOC: ED 07:09
DX: K80.50 Calculus of bile duct without cholangitis or cholecystitis without obstruction (principal); K82.8 Other specified diseases of gallbladder; I10 Essential (primary) hypertension; K21.9 Gastro-esophageal reflux disease without esophagitis; F12.10 Cannabis abuse, uncomplicated; Z87.891 Personal history of nicotine dependence; Z88.5 Allergy status to narcotic agent; Z79.899 Other long term (current) drug therapy; Z98.51 Tubal ligation status; Z79.1 Long term (current) use of non-steroidal anti-inflammatories (NSAID)
CPT/HCPCS: 36415; 76705; 80053; 81001; 83690; 85025; 99284; Q0162

== ENCOUNTER 2019-06-21 09:06 | Emergency (ER) | payer MEDICARE ==
[2019-06-21 09:14] VITALS: BP 154/89
[2019-06-21] MEDS ORDERED: dexAMETHasone 20 MG/5 ML VIAL IM ONE (11:13)
[2019-06-21] MEDS ORDERED: CYCLOBENZAPRINE 10 MG TAB PO ONE (11:13)
[2019-06-21] MEDS ORDERED: KETOROLAC 30 MG/1 ML INJ IM ONE (11:13)
--- NOTE | 2019-06-21 11:42 | Emergency Department Report ---
Upper Extremity - HPI Upper Extremity: Left Shoulder Occurred When: 5 Days Mechanism: Unsure Severity: moderate Symptoms: Yes Pain with Movement, No Deformity, No Limited Range of Movement, No Numbness, No Weakness, No Swelling, No Bruising/Ecchymosis, No Laceration or Abrasion Other History: This is a 64-year-old female who presents to ED complaining of right shoulder and back and neck pain started 4 days ago. Patient states the pain is throbbing in nature and worsened with movement. Patient denies any injuries trauma or fall to the area. Patient states she has a primary care doctor Aguanga out of [place] was she has an appointment with on the . Patient states that she's tried [id number] medications and he had no relief of pain. She denies any radiation of pain elsewhere <LUCIA SALGADO A - Last Filed: 07/16/19 14:14> <YANDY AVINA P - Last Filed: 07/18/19 14:17> - HPI Chief Complaint: Extremity Injury, Upper Stated Complaint: L SHOULDER/NECK PAIN Time Seen by Provider: 06/21/19 10:41 ED Review of Systems ROS: Stated complaint: L SHOULDER/NECK PAIN Other details as noted in HPI Comment: All other systems reviewed and negative <LUCIA SALGADO A - Last Filed: 07/16/19 14:14> ROS: Stated complaint: L SHOULDER/NECK PAIN Other details as noted in HPI <YANDY AVINA P - Last Filed: 07/18/19 14:17> ED Past Medical Hx - Past Medical History Hx Hypertension: Yes Hx GERD: Yes Hx Arthritis: Yes Additional medical history: OSTEOPOROSIS - Surgical History Additional Surgical History: tubal ligation - Social History Smoking Status: Never Smoker Substance Use Type: Alcohol, Marijuana <LUCIA SALGADO A - Last Filed: 07/16/19 14:14> <YANDY AVINA P - Last Filed: 07/18/19 14:17> - Medications Home Medications: Home Medications Medication Instructions Recorded Confirmed Last Taken Type Esomeprazole Magnesium [Nexium 20 mg PO QDAY 12/26/18 01/08/19 12/26/18 History 24Hr] amLODIPine [Norvasc] 10 mg PO DAILY 12/26/18 01/08/19 12/26/18 History lisinopriL [Zestril TAB] 40 mg PO QDAY 12/26/18 01/08/19 12/26/18 History Albuterol INH(or & Nicu Only) 2 puff IH QID PRN #1 inhalation 01/08/19 Unknown Rx [ProAir HFA Inhaler] Ibuprofen [Motrin 800 MG tab] 800 mg PO Q8HR PRN #10 tablet 01/15/19 Unknown Rx Cyclobenzaprine [Flexeril] 10 mg PO QHS PRN #20 tablet 06/21/19 Unknown Rx predniSONE [Deltasone] 20 mg PO QDAY #5 tab 06/21/19 Unknown Rx Upper Extremity Exam - Exam General: Vital signs noted. No distress. Alert and acting appropriately. Head and Torso: No HEENT Abnormality, No Neck Tenderness, No Chest/Lungs Abnormality, No Abdominal Tenderness, No Back Tenderness Shoulder Exam: Yes Shoulder Tenderness (left anterior and posterior), Yes Normal Range of Motion in Shoulder ( some pain with movement), No Clavicle Tenderness, No Shoulder Deformity, No AC Joint Tenderness Arm Exam: No Arm/Humerus Tenderness, No Arm Deformity Elbow: No Elbow Tenderness, No Normal Range of Motion in Elbow, No Elbow Deformity Forearm: No Forearm Tenderness, No Forearm Deformity, No Pain with Pronation, No Pain with Supination Wrist: Yes Normal ROM in Wrist, No Wrist Tenderness, No Wrist Deformity, No Snuffbox Tenderness, No Pain with Axial Thumb Compression Hand: Yes Normal ROM in Digit(s), No Hand Tenderness, No Hand Deformity, No Digit Tenderness, No Digit(s) Deformity, No Tendon Dysfunction CMS Exam: No Broken Skin, No Normal Distal Pulses, No Normal Capillary Refill, No Normal Distal Sensation <LUCIA SALGADO A - Last Filed: 07/16/19 14:14> - Exam General: Vital signs noted. No distress. Alert and acting appropriately. <YANDY AVINA P - Last Filed: 07/18/19 14:17> ED Course Vital Signs 06/21/19 09:11 Temperature 98.0 F Pulse Rate 75 Respiratory 20 Rate Blood Pressure 154/89 O2 Sat by Pulse 99 Oximetry <LUCIA SALGADO A - Last Filed: 07/16/19 14:14> Vital Signs 06/21/19 09:11 Temperature 98.0 F Pulse Rate 75 Respiratory 20 Rate Blood Pressure 154/89 O2 Sat by Pulse 99 Oximetry <YANDY AVINA P - Last Filed: 07/18/19 14:17> ED Medical Decision Making - Medical Decision Making 64-year-old female presents to ED for tendinitis of the left shoulder secondary to osteoarthritis and arthritis. Patient did note that she had a history of arthritis and flares up from time to time. Condition received Toradol, Decadron and Flexeril ED for pain.. Vital signs are normal patient is in no acute distress Discussed with patient follow-up with primary care physician Dr. Carranza. Discussed the patient and take medications as prescribed. Patient has no neurological deficit. Patient is alert and oriented 3 and understands all instructions given. Discussed drowsiness effect of Flexeril makes her drowsy and not to operate machinery while taking flexeril <LUCIA SALGADO A - Last Filed: 07/16/19 14:14> - Medical Decision Making Attestation: Available for consultation. Left shoulder and neck pain could be a sign of ACS. This patient could have possibly benefited from EKG, CXR and laboratory evaluation. <YANDY AVINA P - Last Filed: 07/18/19 14:17> Critical care attestation.: If time is entered above; I have spent that time in minutes in the direct care of this critically ill patient, excluding procedure time. <LUCIA SALGADO A - Last Filed: 07/16/19 14:14> Critical care attestation.: If time is entered above; I have spent that time in minutes in the direct care of this critically ill patient, excluding procedure time. <YANDY AVINA P - Last Filed: 07/18/19 14:17> ED Disposition Is pt being admited?: No Does the pt Need Aspirin: No Time of Disposition: 12:24 <LUCIA SALGADO A - Last Filed: 07/16/19 14:14> Is pt being admited?: No <YANDY AVINA P - Last Filed: 07/18/19 14:17> Clinical Impression: Tendinitis Disposition: - TO HOME OR SELFCARE Condition: Stable Instructions: Rotator Cuff Tendinitis (ED), Tendinitis (ED) Additional Instructions: Make sure to follow up with the primary care physician as discussed. Take all your medications as you've been prescribed. If you have any worsening symptoms or develop new symptoms please return to ED immediately. Prescriptions: Cyclobenzaprine [Flexeril] 10 mg PO QHS PRN #20 tablet PRN Reason: Muscle Spasm predniSONE [Deltasone] 20 mg PO QDAY #5 tab Referrals: PRIMARY CARE, [Referring] - 3-5 Days EL PITT MD [Staff Physician] - 3-5 Days Forms: Accompanied Note, Work/School Release Form(ED)
== END 2019-06-21 12:57 | disposition home or self-care (01) ==
LOC: ED 09:06
DX: M19.012 Primary osteoarthritis, left shoulder (principal); M75.92 Shoulder lesion, unspecified, left shoulder; K21.9 Gastro-esophageal reflux disease without esophagitis; F10.10 Alcohol abuse, uncomplicated; F12.10 Cannabis abuse, uncomplicated; Z79.899 Other long term (current) drug therapy; Z98.51 Tubal ligation status; Z88.5 Allergy status to narcotic agent
CPT/HCPCS: 96372; 99282; J1100; J1885

== ENCOUNTER 2020-01-11 10:52 | Emergency (ER) | payer MEDICARE ==
[2020-01-11 11:25] VITALS: BP 163/82
--- NOTE | 2020-01-11 11:27 | Event Note ---
ED Screening Note Date of service: 01/11/20 Time: 11:25 ED Screening Note: 64-year-old patient presents with complaints of urinary frequency for the past 2 weeks and low back pain for the past 2 weeks She denies any back injuries or heavy lifting or history of cancer Patient also denies any loss of sensation in her legs, difficulty with ambulation, or loss of bladder/bowel control + Lumbar vertebral tenderness This initial assessment/diagnostic orders/clinical plan/treatment(s) is/are subj ect to change based on patients health status, clinical progression and re- assessment by fellow clinical providers in the ED. Further treatment and workup at subsequent clinical providers discretion. Patient/guardian urged not to elope from the ED as their condition may be serious if not clinically assessed and managed. Initial orders include: UA X-ray spine
[2020-01-11] MEDS ORDERED: KETOROLAC 30 MG/1 ML INJ IM ONE (12:32)
[2020-01-11] MEDS ORDERED: dexAMETHasone 20 MG/5 ML VIAL IM ONE (12:32)
--- NOTE | 2020-01-11 12:48 | Emergency Department Report ---
ED Back Pain/Injury HPI - General Chief Complaint: Back Pain/Injury Stated Complaint: BACK PAIN Time Seen by Provider: 01/11/20 12:08 Source: patient Limitations: No Limitations - History of Present Illness Initial Comments: This is a 64-year-old female who presents the ED complaining of lower lumbar midline back pain that radiates to her buttocks. Patient states that pain is worsened in the past week. Patient states 7 years ago she was diagnosed with some lumbar back pain. She denies any recent injury, dysuria, falls. She describes pain as radiating to her bilateral buttocks. She states pain is worsened with certain types of movement. Patient states she has an appointment with her primary care physician Dr. Carranza on 16 January. MD Complaint: back pain Similar Symptoms Previously: Yes Place: home Radiation: buttocks Severity: moderate Severity scale (0 -10): 6 Worsens With: movement Associated Symptoms: denies: confusion, weakness, chest pain, numbness, difficul ty walking, headaches - Related Data Home Medications Medication Instructions Recorded Confirmed Last Taken Esomeprazole Magnesium [Nexium 20 mg PO QDAY 12/26/18 01/08/19 12/26/18 24Hr] amLODIPine [Norvasc] 10 mg PO DAILY 12/26/18 01/08/19 12/26/18 lisinopriL [Zestril TAB] 40 mg PO QDAY 12/26/18 01/08/19 12/26/18 Previous Rx's Medication Instructions Recorded Last Taken Type Albuterol INH(or & Nicu Only) 2 puff IH QID PRN #1 inhalation 01/08/19 Unknown Rx [ProAir HFA Inhaler] Cyclobenzaprine [Flexeril] 10 mg PO QHS PRN #20 tablet 06/21/19 Unknown Rx predniSONE [Deltasone] 20 mg PO QDAY #5 tab 06/21/19 Unknown Rx Naproxen [Naprosyn] 500 mg PO BID #30 tablet 11/25/19 Unknown Rx Ibuprofen [Motrin 800 MG tab] 800 mg PO Q8HR PRN #30 tablet 01/11/20 Unknown Rx Allergies Allergy/AdvReac Type Severity Reaction Status Date / Time morphine Allergy Unknown Verified 06/21/19 09:07 ED Review of Systems ROS: Stated complaint: BACK PAIN Other details as noted in HPI Comment: All other systems reviewed and negative ED Past Medical Hx - Past Medical History OSTEOPOROSIS ED Back Pain Physical Exam - Exam General: Vital signs noted. No distress. Alert and acting appropriately. Back/Abdomen: No Abdominal Tenderness, No Perithoracic Tenderness, No Perilumbar Tenderness, No Sacroiliac Tenderness, No Flank Tenderness, No Straight Leg Raise Pain Neuro: Yes Normal Sensation, Yes Normal DTR's, Yes Normal Gait, No Motor Weakness ED Course Vital Signs 01/11/20 11:22 Temperature 98 F Pulse Rate 84 Respiratory 18 Rate Blood Pressure 163/82 O2 Sat by Pulse 98 Oximetry Ed Back Pain Tests - Tests Tests: Normal UA, Normal X Rays ED Medical Decision Making - Lab Data Laboratory Last Values Urine Color Colorless (Yellow) 01/11/20 Unknown Urine Turbidity Clear (Clear) 01/11/20 Unknown Urine pH 6.0 (5.0-7.0) 01/11/20 Unknown Ur Specific [place] 1.003 (1.003-1.030) 01/11/20 Unknown Urine Protein <15 mg/dl mg/dL (Negative) 01/11/20 Unknown Urine Glucose (UA) Neg mg/dL (Negative) 01/11/20 Unknown Urine Ketones Neg mg/dL (Negative) 01/11/20 Unknown Urine Blood Neg (Negative) 01/11/20 Unknown Urine Nitrite Neg (Negative) 01/11/20 Unknown Urine Bilirubin Neg (Negative) 01/11/20 Unknown Urine Urobilinogen < 2.0 mg/dL (<2.0) 01/11/20 Unknown Ur Leukocyte Esterase Neg (Negative) 01/11/20 Unknown Urine WBC (Auto) 1.0 /HPF (0.0-6.0) 01/11/20 Unknown Urine RBC (Auto) 1.0 /HPF (0.0-6.0) 01/11/20 Unknown U Epithel Cells (Auto) < 1.0 /HPF (0-13.0) 01/11/20 Unknown - Radiology Data Radiology results: report reviewed, image reviewed Fluoro Time In Minutes: Lumbar spine x-ray INDICATION / CLINICAL INFORMATION: 64 years Female; low back pain, no injury. COMPARISON: None available. FINDINGS: 3 view(s) of the lumbar spine were obtained. Lateral view demonstrates slight retrolisthesis of L4 with respect to L5. Vertebral bodies are grossly normal in height. Mild disc space narrowing seen at L3-4 and L4-5. There is anterior spondylosis at L3-4, leftward of midline. Facet hypertrophy suggested at multiple levels. Phleboliths seen in the pelvis. Costochondral calcifications noted. Small calcification is seen overlying the left upper quadrant, which could be splenic or vascular in location. Costotransverse hypertrophy seen on the right at T11. IMPRESSION: Degenerative changes of the lumbar spine as described above. Signer Name: Renny Courtney MD, III Signed: 01/11/2020 1:18 PM Workstation Name: [id number] Transcribed By: HR Dictated By: Renny Courtney MD Electronically Authenticated By: Renny Courtney MD Signed Date/Time: 01/11/20 1318 - Medical Decision Making 64-year-old female presents with back pain secondary to lumbar radiculopathy. ED course: Patient received Toradol and Decadron in ED. Vital signs are normal patient is in no acute distress Discussed with patient follow-up with primary care physician. Discussed the patient and take medications as prescribed. Patient has no neurological deficit. Patient is alert and oriented 3 and understands all instructions given. Discussed with patient to follow-up with neurologist. Referrals given Critical care attestation.: If time is entered above; I have spent that time in minutes in the direct care of this critically ill patient, excluding procedure time. ED Disposition Clinical Impression: Lumbar disc narrowing Disposition: DC-01 TO HOME OR SELFCARE Is pt being admited?: No Does the pt Need Aspirin: No Condition: Stable Instructions: Lumbar Radiculopathy (ED), Back Pain (ED) Additional Instructions: Make sure to follow up with the primary care physician as discussed. Take all your medications as you've been prescribed. If you have any worsening symptoms or develop new symptoms please return to ED immediately. Prescriptions: Ibuprofen [Motrin 800 MG tab] 800 mg PO Q8HR PRN #30 tablet PRN Reason: Pain , Severe (7-10) Referrals: LIZETTE SOLOMON MD [Primary Care Provider] - 3-5 Days BRENNEN GOOD MD [Staff Physician] - 3-5 Days [facility] [Provider Group] - 3-5 Days Forms: Work/School Release Form Time of Disposition: 13:31
[2020-01-11 13:12] LABS: Bilirubin,Urine NEG (Negative); Blood,Urine NEG (Negative); Color,Urine Colorless (Yellow); Protein,Urine <15 mg/dL mg/dL (Negative); Urobilinogen,Urine < 2.0 mg/dL (<2.0)
--- NOTE | 2020-01-11 13:22 | XRay Report ---
Lumbar spine x-ray INDICATION / CLINICAL INFORMATION: 64 years Female; low back pain, no injury. COMPARISON: None available. FINDINGS: 3 view(s) of the lumbar spine were obtained. Lateral view demonstrates slight retrolisthesis of L4 with respect to L5. Vertebral bodies are grossl y normal in height. Mild disc space narrowing seen at L3-4 and L4-5. There is anterior spondylosis at L3-4, leftward of m idline. Facet hypertrophy suggested at multiple levels. Phleboliths seen in the pelvis. Costochondral calcifications noted. Small calcification is seen overlying the left upper quadrant, which could be splenic or vascular in location. Costotransverse hypertrophy seen on the right at T11. IMPRESSION: Degenerative changes of the lumbar spine as described above. Signer Name: Renny Courtney MD, III Signed: 01/11/2020 1:18 PM Workstation Name: [id number]
== END 2020-01-11 14:03 | disposition home or self-care (01) ==
LOC: ED 10:52
DX: M48.07 Spinal stenosis, lumbosacral region (principal); Z79.899 Other long term (current) drug therapy; Z88.6 Allergy status to analgesic agent
CPT/HCPCS: 72100; 81001; 96372; 99283; J1100; J1885

== ENCOUNTER 2020-05-22 12:56 | Emergency (ER) | payer MEDICARE ==
[2020-05-22 13:10] VITALS: BP 123/86
--- NOTE | 2020-05-22 13:15 | Event Note ---
ED Screening Note Date of service: 05/22/20 Time: 13:15 ED Screening Note: Patient complains of right-sided headache x yesterday Denies worst headache of her life and states the headache is intermittent Denies head trauma; states pain persists after taking naproxen and muscle relaxer Also complains of right fourth toe pain x1 week after stubbing the toe States there is swelling This initial assessment/diagnostic orders/clinical plan/treatment(s) is/are subject to change based on patients health status, clinical progression and re- assessment by fellow clinical providers in the ED. Further treatment and workup at subsequent clinical providers discretion. Patient/guardian urged not to elope from the ED as their condition may be serious if not clinically assessed and managed. Initial orders include: Labs X-ray
--- NOTE | 2020-05-22 14:29 | XRay Report ---
RIGHT FOURTH TOE 3 VIEW INDICATION / CLINICAL INFORMATION: 4th toe pain and swelling after injury. COMPARISON: None available. FINDINGS: There is a subacute appearing fracture of the fourth toe proximal phalanx with peripheral callus form ation. There is no appreciable acute fracture. Overall alignment is normal. Signer Name: Arsalan Brooks MD Signed: 05/22/2020 2:24 PM Workstation Name: [id number]
[2020-05-22 15:48] LABS: Basophils % (Auto) 0.7 % (0.0-1.8); Eosinophils % (Auto) 0.6 % (0.0-4.3); Hematocrit 37.7 % (30.3-42.9); Hemoglobin 12.6 gm/dl (10.1-14.3); Lymphocytes # (Auto) 2.8 K/mm3 (1.2-5.4); Lymphocytes % (Auto) 43.1 % (13.4-35.0); Mean Corpuscular HGB Conc 33 % (30-34); Mean Corpuscular Volume 89 fl (79-97); Monocytes # (Auto) 0.5 K/mm3 (0.0-0.8); Platelet Count 376 K/mm3 (140-440); Red Blood Count 4.24 M/mm3 (3.65-5.03)
[2020-05-22 16:06] LABS: Alanine Aminotransferase 13 units/L (7-56); Albumin 4.4 g/dL (3.9-5); BUN/Creatinine Ratio 19; Blood Urea Nitrogen 15 mg/dL (7-17); Calcium 9.7 mg/dL (8.4-10.2); Hemolysis Index 9
[2020-05-22] MEDS ORDERED: METOCLOPRAMIDE 10 MG TAB PO ONE (19:48)
[2020-05-22] MEDS ORDERED: dexAMETHasone 20 MG/5 ML VIAL IM ONE (19:48)
[2020-05-22] MEDS ORDERED: diphenhydrAMINE 25 MG CAP PO ONE (19:48)
[2020-05-22] MEDS ORDERED: ACETAMINOPHEN 500 MG TAB PO ONE (19:48)
--- NOTE | 2020-05-22 20:08 | Emergency Department Report ---
ED Headache HPI - General Chief Complaint: Headache Stated Complaint: RT SIDE HEAD PAIN Time Seen by Provider: 05/22/20 13:13 - History of Present Illness Initial Comments: pt is a 65 y/o female who complains of right-sided headache x yesterday, Denies worst headache of her life and states the headache is intermittent Denies head trauma; states pain persists after taking naproxen and muscle relaxer, pain is 3/10, there is no dizziness, no n/v, no fever or chills, no cough, no sinus pain or drainage. Also complains of right fourth toe pain x1 week after stubbing the toe States there is swelling. Allergies/Adverse Reactions: Allergies morphine Allergy (Verified 06/21/19 09:07) Unknown Home Medications: Ambulatory Orders Esomeprazole Magnesium [Nexium 24Hr] 20 mg PO QDAY 12/26/18 amLODIPine [Norvasc] 10 mg PO DAILY 12/26/18 lisinopriL [Zestril TAB] 40 mg PO QDAY 12/26/18 Albuterol Mdi (or & Nicu Only) [ProAir HFA Inhaler] 2 puff IH QID PRN #1 inhalation 01/08/19 Cyclobenzaprine [Flexeril] 10 mg PO QHS PRN #20 tablet 06/21/19 predniSONE [Deltasone] 20 mg PO QDAY #5 tab 06/21/19 Naproxen [Naprosyn] 500 mg PO BID #30 tablet 11/25/19 Ibuprofen [Motrin 800 MG tab] 800 mg PO Q8HR PRN #30 tablet 01/11/20 Acetaminophen [Acetaminophen TAB] 1,000 mg PO Q6HR PRN #30 tablet 05/22/20 Metoclopramide [Reglan] 10 mg PO Q6H PRN #30 tablet 05/22/20 diphenhydrAMINE [Benadryl CAP] 25 mg PO Q6HR PRN #30 capsule 05/22/20 ED Review of Systems ROS: Stated complaint: RT SIDE HEAD PAIN Other details as noted in HPI Constitutional: denies: chills, fever Eyes: denies: eye pain, eye discharge, vision change ENT: denies: ear pain, throat pain Respiratory: denies: cough, shortness of breath, wheezing Cardiovascular: denies: chest pain, palpitations Endocrine: no symptoms reported Gastrointestinal: denies: abdominal pain, nausea, vomiting, diarrhea Genitourinary: denies: urgency, dysuria, discharge Musculoskeletal: other (right 4th toe pain ). denies: back pain, joint swelling, arthralgia Skin: denies: rash, lesions Neurological: headache Psychiatric: denies: anxiety, depression Hematological/Lymphatic: denies: easy bleeding, easy bruising ED Past Medical Hx - Past Medical History Previous Medical History?: Yes Hx Hypertension: Yes Hx GERD: Yes Hx Arthritis: Yes Additional medical history: OSTEOPOROSIS - Surgical History Past Surgical History?: Yes Additional Surgical History: tubal ligation - Social History Smoking Status: Never Smoker Substance Use Type: None - Medications Home Medications: Home Medications Medication Instructions Recorded Confirmed Last Taken Type Esomeprazole Magnesium [Nexium 20 mg PO QDAY 12/26/18 01/08/19 12/26/18 History 24Hr] amLODIPine [Norvasc] 10 mg PO DAILY 12/26/18 01/08/19 12/26/18 History lisinopriL [Zestril TAB] 40 mg PO QDAY 12/26/18 01/08/19 12/26/18 History Albuterol Mdi (or & Nicu Only) 2 puff IH QID PRN #1 inhalation 01/08/19 Unknown Rx [ProAir HFA Inhaler] Cyclobenzaprine [Flexeril] 10 mg PO QHS PRN #20 tablet 06/21/19 Unknown Rx predniSONE [Deltasone] 20 mg PO QDAY #5 tab 06/21/19 Unknown Rx Naproxen [Naprosyn] 500 mg PO BID #30 tablet 11/25/19 Unknown Rx Ibuprofen [Motrin 800 MG tab] 800 mg PO Q8HR PRN #30 tablet 01/11/20 Unknown Rx Acetaminophen [Acetaminophen TAB] 1,000 mg PO Q6HR PRN #30 tablet 05/22/20 Unknown Rx Metoclopramide [Reglan] 10 mg PO Q6H PRN #30 tablet 05/22/20 Unknown Rx diphenhydrAMINE [Benadryl CAP] 25 mg PO Q6HR PRN #30 capsule 05/22/20 Unknown Rx ED Physical Exam - General Limitations: No Limitations General appearance: alert, in no apparent distress - Head Head exam: Present: atraumatic, normocephalic - Eye Eye exam: Present: PERRL, EOMI. Absent: conjunctival injection Pupils: Present: normal accommodation - ENT ENT exam: Present: normal orophraynx, mucous membranes moist, TM's normal bilaterally, normal external ear exam - Neck Neck exam: Present: normal inspection, full ROM. Absent: tenderness - Respiratory Respiratory exam: Present: normal lung sounds bilaterally. Absent: respiratory distress, wheezes, stridor, chest wall tenderness - Cardiovascular Cardiovascular Exam: Present: regular rate, normal rhythm, normal heart sounds. Absent: systolic murmur, diastolic murmur, rubs, gallop - GI/Abdominal GI/Abdominal exam: Present: soft, normal bowel sounds. Absent: distended, tenderness, guarding, rebound, rigid, bruit, hernia - Rectal Rectal exam: Present: deferred - Extremities Exam Extremities exam: Present: normal inspection, full ROM, tenderness (right 4th toe ), normal capillary refill - Expanded Lower Extremity Exam Right Foot/Toe exam: Present: full ROM, tenderness. Absent: swelling, abrasion, laceration, ecchymosis, deformity, crepidus, dislocation, erythema, amputation, puncture wound, foreign body, calcaneal tenderness, tenderness at base of 5th me tatarsal, nail avulsion, subungual hematoma Neuro vascular tendon exam: Absent: pulse deficit, motor deficit, sensory deficit, tendon deficit, foot drop Gait: Positive: observed and normal - Back Exam Back exam: Present: normal inspection, full ROM. Absent: tenderness, CVA tenderness (R), CVA tenderness (L), vertebral tenderness - Neurological Exam Neurological exam: Present: alert, oriented X3, CN II-XII intact, normal gait, reflexes normal. Absent: motor sensory deficit - Expanded Neurological Exam Expanded Patient oriented to: Present: person, place, time Speech: Present: fluid speech Motor strength exam: RUE: 5, LUE: 5, RLE: 5, LLE: 5 Best Eye Response ([place]): (4) open spontaneously Best Motor Response ([place]): (6) obeys commands Best Verbal Response ([place]): (5) oriented [place] Total: 15 - Psychiatric Psychiatric exam: Present: normal affect, normal mood - Skin Skin exam: Present: warm, dry, intact, normal color. Absent: rash ED Course Vital Signs 05/22/20 13:07 Temperature 98.3 F Pulse Rate 84 Respiratory 18 Rate Blood Pressure 123/86 [Right] O2 Sat by Pulse 100 Oximetry ED Medical Decision Making - Lab Data Result diagrams: 05/22/20 15:32 05/22/20 15:32 Labs 05/22/20 05/22/20 15:32 15:32 WBC 6.4 RBC 4.24 Hgb 12.6 Hct 37.7 MCV 89 MCH 30 MCHC 33 RDW 15.0 Plt Count 376 Lymph % (Auto) 43.1 H [place] % (Auto) 8.0 H Eos % (Auto) 0.6 Baso % (Auto) 0.7 Lymph # (Auto) 2.8 [place] # (Auto) 0.5 Eos # (Auto) 0.0 Baso # (Auto) 0.0 Seg Neutrophils % 47.6 Seg Neutrophils # 3.1 Sodium 139 Potassium 3.5 L Chloride 103.4 Carbon Dioxide 25 Anion Gap 14 BUN 15 Creatinine 0.8 Estimated GFR > 60 BUN/Creatinine Ratio 19 Glucose 119 H Calcium 9.7 Total Bilirubin 0.20 AST 21 ALT 13 Alkaline Phosphatase 79 Total Protein 7.3 Albumin 4.4 Albumin/Globulin Ratio 1.5 - Radiology Data Radiology results: report reviewed, image reviewed Findings Reporting MD: Arsalan Brooks Dictation Time: May 22, 2020 13:24 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 COMPARISON: None available. FINDINGS: There is a subacute appearing fracture of the fourth toe proximal phalanx with peripheral callus formation. There is no appreciable acute fracture. Overall alignment is normal. Signer Name: Arsalan Brooks MD Signed: 05/22/2020 1:24 PM Workstation Name: [email or web address] - Medical Decision Making Headache is improved with medications given in ED. neurol exam is normal, X- ray right foot demonstrates subacute right proximal fourth toe fracture no displacement, distal pulses +2 bilat, rom intact and unrestricted. plan: benadryl, reglan, tylenol prn headache, follow up with pcp in 2-3 days, pt verbalized agreement and understanding of discharge plan, dc'd to home in [facility] at this time. pt is ambulatory with steady gait. Critical care attestation.: If time is entered above; I have spent that time in minutes in the direct care of this critically ill patient, excluding procedure time. ED Disposition Clinical Impression: Headache Qualifiers: Headache type: unspecified Headache chronicity pattern: acute headache Intractability: not intractable Qualified Code(s): R51.9 - Headache, unspecified Fracture, toe Qualifiers: Encounter type: initial encounter Toe: lesser toe Fracture type: closed Phalanx: proximal Fracture alignment: nondisplaced Laterality: right Qualified Code(s): S92.514A - Nondisplaced fracture of proximal phalanx of right lesser toe(s), initial encounter for closed fracture Disposition: TO HOME OR SELFCARE Is pt being admited?: No Does the pt Need Aspirin: No Condition: Stable Instructions: General Headache Without Cause, [id number], Toe Fracture, [id number] Prescriptions: Acetaminophen [Acetaminophen TAB] 1,000 mg PO Q6HR PRN #30 tablet PRN Reason: headache diphenhydrAMINE [Benadryl CAP] 25 mg PO Q6HR PRN #30 capsule PRN Reason: headache Metoclopramide [Reglan] 10 mg PO Q6H PRN #30 tablet PRN Reason: Headache Referrals: EL PITT MD [Staff Physician] - 3-5 Days DINA DUNBAR MD [Staff Physician] - 3-5 Days Forms: Work/School Release Form(ED) Time of Disposition: 20:18
== END 2020-05-22 20:45 | disposition home or self-care (01) ==
LOC: ED 12:56
DX: S92.511A Displaced fracture of proximal phalanx of right lesser toe(s), initial encounter for closed fracture (principal); R51.9 Headache, unspecified; I10 Essential (primary) hypertension; E11.9 Type 2 diabetes mellitus without complications; M19.91 Primary osteoarthritis, unspecified site; Z98.51 Tubal ligation status; Z79.1 Long term (current) use of non-steroidal anti-inflammatories (NSAID); Z79.899 Other long term (current) drug therapy; Z88.8 Allergy status to other drugs, medicaments and biological substances; X58.XXXA Exposure to other specified factors, initial encounter; Y93.89 Activity, other specified; Y92.89 Other specified places as the place of occurrence of the external cause; Y99.8 Other external cause status
CPT/HCPCS: 36415; 73660; 80053; 85025; 96372; 99283; J1100